=== PATIENT | male | born 1960 | race Caucasian/White ===

== ENCOUNTER 2021-12-03 09:31 | Emergency (ER) | payer BC ==
[~2021-12-03] VITALS: Ht 188 cm; Wt 113.8 kg
[~2021-12-03 09:31] MED LIST: FEXOFENADINE HC30 MG PO; TRIAMCINOLONE16.5 GM NS
[2021-12-03] MEDS ORDERED: PREDNISOLONE ACE5 ML OPTH (09:49)
[2021-12-03] MEDS ORDERED: MONTELUKAST SOD10 MG PO (09:49)
[2021-12-03] MEDS ORDERED: ATORVASTATIN CA20 MG PO (09:49)
[2021-12-03] MEDS ORDERED: DUTASTERIDE0.5 MG PO (09:50)
[2021-12-03] MEDS ORDERED: LO-DOSE ASPIRIN81 M1 PO (09:53)
== END 2021-12-03 11:14 | disposition home or self-care (01) ==
LOC: ED 09:31
DX: S00.01XA Abrasion of scalp, initial encounter (principal); Z88.8 Allergy status to other drugs, medicaments and biological substances; Z79.52 Long term (current) use of systemic steroids; Z79.82 Long term (current) use of aspirin; Z79.899 Other long term (current) drug therapy; W01.198A Fall on same level from slipping, tripping and stumbling with subsequent striking against other object, initial encounter
CPT/HCPCS: 70450; 99283-25